=== PATIENT | female | born 1940 | race African-American/Black ===

== ENCOUNTER 2024-09-15 16:37 | Inpatient (IN) | payer BC, MEDICAID, MEDICARE ==
[2024-09-15] VITALS (7 sets, daily range): BP systolic 98–129; BP diastolic 46–53; PULSE 47–59; RESP 11–21; TEMP 36.3; O2SAT 98–100
[~2024-09-15] VITALS: Ht 167.6 cm; Wt 78.6 kg
[~2024-09-15 16:37] MED LIST: ASPI-1497 PO; BENA-8 PO; CIPR-263 PO; GLIM4TAB36 PO; METF-416 PO; SIMV-43 PO
[2024-09-15 17:45] LABS: BASOPHILS % 0.1 % (0.0-2.0); DIFFERENTIAL COMMENT 0; HEMATOCRIT. 35.9 % (36.0-48.0); HEMOGLOBIN. 10.9 g/dL (12.0-16.0); MEAN CORPUSCULAR HGB CONC 30.4 g/dL (31.0-37.0); MEAN CORPUSCULAR VOLUME 91.9 fL (81.0-99.0); MEAN PLATELET VOLUME 9.5 fl (7.4-10.4); MONOCYTES % 5.5 % (2.0-8.0); NEUTROPHILS % 84.4 % (40.0-76.0); PLATELET 231 x1000/uL (130-400); RED CELL DISTRIBUTION WIDTH 15.6 % (11.6-14.6); WHITE BLOOD COUNT 16.8 x1000/uL (4.5-11.0)
[2024-09-15 17:56] LABS: CHLORIDE 103 mEq/L (98-107); POTASSIUM 5.3 mEq/L (3.5-5.1); SODIUM 142 mEq/L (136-145)
[2024-09-15 17:57] LABS: CALCIUM 9.4 mg/dL (8.7-10.4); CARBON DIOXIDE 21 mEq/L (21-32)
[2024-09-15 18:02] LABS: CREATININE 1.8 mg/dL (0.6-1.0); GLUCOSE 250 mg/dL (70-105); UREA NITROGEN BLOOD 70 mg/dL (9-23)
[2024-09-15 18:30] LABS: TROPONIN I HIGH SENSITIVITY 11095 ng/L (3.0-34)
[2024-09-15] MEDS ORDERED: MIDAZOLAM HCL 2 MG/2 ML VIAL ONE (19:12)
[2024-09-15] MEDS ORDERED: EPINEPHRINE 0.1MG/ML (1:10,000) 10ML SYR ONE (19:12)
[2024-09-15] MEDS ORDERED: LIDOCAINE HCL 1% 20ML VIAL ONE (19:12)
[2024-09-15] MEDS ORDERED: IODIXANOL 320 MG/ML 150ML BOTTLE IV ONE (19:12)
[2024-09-15] MEDS ORDERED: ATROPINE SULFATE 1MG/10ML SYR ONE ×2 (19:13→19:58)
[2024-09-15] MEDS ORDERED: HEPARIN 1000 UNITS/ML 10ML ONE (19:13)
[2024-09-15] MEDS ORDERED: FENTANYL CITRATE/PF 50MCG/ML 2ML VIAL ONE (19:13)
[2024-09-15] MEDS ORDERED: DIPHENHYDRAMINE 50MG/ML VIAL ONE (19:15)
[2024-09-15] MEDS: HEPARIN 5000 UNITS/ML VIAL IV ONE (19:22)
[2024-09-15 19:39] LABS: THYROID STIMULATING HORMONE 1.91 uIU/mL (0.55-4.78)
[2024-09-15] MEDS ORDERED: VERAPAMIL HCL 2.5 MG/1 ML 2ML VIAL IV ONE (19:43)
[2024-09-15] MEDS ORDERED: DOPAMINE 400MG/250ML PREMIX 250 ML IV ONE (19:54)
[2024-09-15] MEDS ORDERED: HYDRALAZINE 20MG/ML VIAL ONE (20:31)
[2024-09-15] MEDS ORDERED: ACETAMINOPHEN 325MG TABLET PO PRN ×3 (21:00→22:45)
[2024-09-15] MEDS: ATROPINE SULFATE 1MG/10ML SYR IV PRN (22:31)
[2024-09-15] MEDS: SODIUM CHLORIDE 0.45% 500 ML IV SCH (22:31)
[2024-09-15] MEDS ORDERED: GUAIFENESIN 200MG/10ML SUGAR FREE UDC PO PRN (22:45)
[2024-09-15] MEDS ORDERED: IPRATROPIUM/ALBUTEROL 0.5-3(2.5)MG/3ML NEB HHN PRN (22:45)
[2024-09-15] MEDS ORDERED: CLONIDINE 0.1MG TABLET PO PRN (22:45)
[2024-09-15] MEDS ORDERED: MAGNESIUM/ALUMINUM HYDROXIDE/SIMETHICONE 30ML UDC PO PRN (22:45)
[2024-09-15] MEDS ORDERED: DEXTROSE 50% WATER 50ML SYRINGE IV PRN (23:00)
[2024-09-15] MEDS: SODIUM CHLORIDE 0.9% 1,000 ML IV SCH (23:22)
[2024-09-15] MEDS: SODIUM ZIRCONIUM CYCLOSILICATE 10GM/PACKET PO NR (23:23)
[2024-09-16] VITALS (76 sets, daily range): BP systolic 83–168; BP diastolic 45–111; PULSE 41–94; RESP 9–26; TEMP 36.2–37.2; O2SAT 92–100
[2024-09-16 00:59] LABS: PHOSPHORUS 4.6 mg/dL (2.5-4.9)
[2024-09-16] MEDS: DOPAMINE 800MG PREMIX (DOUBLE) 250 ML IV PRN (01:01)
[2024-09-16 06:27] LABS: PROTHROMBIN TIME 10.9 sec (9.6-11.0)
[2024-09-16 06:36] LABS: CALCIUM 8.9 mg/dL (8.7-10.4); CARBON DIOXIDE 26 mEq/L (21-32); CHLORIDE 107 mEq/L (98-107); POTASSIUM 4.4 mEq/L (3.5-5.1); SODIUM 146 mEq/L (136-145)
[2024-09-16 06:41] LABS: CREATININE 1.4 mg/dL (0.6-1.0)
[2024-09-16 06:42] LABS: GLUCOSE 180 mg/dL (70-105); TRIGLYCERIDE 150 mg/dL (0-150); UREA NITROGEN BLOOD 67 mg/dL (9-23)
[2024-09-16 06:43] LABS: LDL CHOLESTEROL 55 mg/dL (5-100)
[2024-09-16 06:44] LABS: CHOLESTEROL 122 mg/dL (<200); HDL CHOLESTEROL 32 mg/dL (>65)
[2024-09-16 06:51] LABS: BASOPHILS % 0.1 % (0.0-2.0); HEMOGLOBIN. 9.9 g/dL (12.0-16.0); LYMPHOCYTES % 13.8 % (20.0-50.0); MEAN CORPUSCULAR HEMOGLOBIN 28.2 pg (28.0-32.0); MEAN CORPUSCULAR VOLUME 91.2 fL (81.0-99.0); MEAN PLATELET VOLUME 9.5 fl (7.4-10.4); MONOCYTES % 6.7 % (2.0-8.0); NEUTROPHILS % 79.4 % (40.0-76.0); PLATELET 225 x1000/uL (130-400); RED BLOOD CELL COUNT 3.51 mill/uL (4.2-5.4); RED CELL DISTRIBUTION WIDTH 14.6 % (11.6-14.6); WHITE BLOOD COUNT 13.5 x1000/uL (4.5-11.0)
[2024-09-16 06:54] LABS: CREATINE KINASE 2515 IU/L (34-145)
[2024-09-16] MEDS: BLOOD SUGAR DIAGNOSTIC STRIP TEST SCH (07:51)
[2024-09-16 08:11] LABS: TROPONIN I HIGH SENSITIVITY 13992 ng/L (3.0-34)
[2024-09-16] MEDS ORDERED: INSULIN LISPRO 100 UNITS/ML SUBCUT SCH (08:20)
[2024-09-16] MEDS ORDERED: HEPARIN 25,000 UNITS PREMIX 250 ML IV SCH (08:45)
[2024-09-16] MEDS: ASPIRIN 81MG TABLET PO SCH (09:07)
[2024-09-16] MEDS: INSULIN LISPRO 100 UNITS/ML SUBCUT SCH (09:08)
[2024-09-16] MEDS: SODIUM CHLORIDE 0.45% 250 ML IV ONE (09:09)
[2024-09-16] MEDS ORDERED: HEPARIN BOLUS PRN aPTT <30 IV (09:15)
[2024-09-16] MEDS: HEPARIN 60 UNITS/KG BOLUS IV SCH ×2 (10:00→10:58)
[2024-09-16] MEDS: HEPARIN 25,000 UNITS PREMIX 250 ML IV SCH (11:01)
[2024-09-16 15:00] LABS: TROPONIN I HIGH SENSITIVITY 11707 ng/L (3.0-34)
[2024-09-16 17:49] LABS: TROPONIN I HIGH SENSITIVITY 11407 ng/L (3.0-34)
[2024-09-16 17:58] LABS: CREATINE KINASE 1667 IU/L (34-145)
[2024-09-16] MEDS: HEPARIN BOLUS PRN aPTT 30-44 IV (19:41)
[2024-09-16] MEDS: FAMOTIDINE 20MG TABLET PO SCH (21:56)
[2024-09-16] MEDS: ATORVASTATIN CALCIUM 40MG TABLET PO SCH (21:56)
[2024-09-17] VITALS (96 sets, daily range): BP systolic 86–164; BP diastolic 40–98; PULSE 49–90; RESP 9–31; TEMP 36.7–36.9; O2SAT 63–100
[2024-09-17 06:22] LABS: BASOPHILS % 0.3 % (0.0-2.0); EOSINOPHILS % 1.1 % (0.0-5.0); HEMATOCRIT. 27.6 % (36.0-48.0); HEMOGLOBIN. 8.8 g/dL (12.0-16.0); LYMPHOCYTES % 16.1 % (20.0-50.0); MEAN CORPUSCULAR HEMOGLOBIN 28.9 pg (28.0-32.0); MEAN CORPUSCULAR HGB CONC 31.9 g/dL (31.0-37.0); MEAN CORPUSCULAR VOLUME 90.7 fL (81.0-99.0); MONOCYTES % 7.9 % (2.0-8.0); NEUTROPHILS % 74.6 % (40.0-76.0); PLATELET 190 x1000/uL (130-400); RED BLOOD CELL COUNT 3.04 mill/uL (4.2-5.4); RED CELL DISTRIBUTION WIDTH 14.6 % (11.6-14.6); WHITE BLOOD COUNT 12.3 x1000/uL (4.5-11.0)
[2024-09-17 06:44] LABS: CHLORIDE 110 mEq/L (98-107); POTASSIUM 3.7 mEq/L (3.5-5.1); SODIUM 145 mEq/L (136-145)
[2024-09-17 06:46] LABS: CARBON DIOXIDE 25 mEq/L (21-32)
[2024-09-17 06:47] LABS: CALCIUM 8.7 mg/dL (8.7-10.4)
[2024-09-17 06:51] LABS: CREATININE 0.9 mg/dL (0.6-1.0)
[2024-09-17 06:52] LABS: GLUCOSE 160 mg/dL (70-105); UREA NITROGEN BLOOD 44 mg/dL (9-23)
[2024-09-17 06:53] LABS: ALANINE AMINOTRANSFERASE 504 IU/L (10-49); ALBUMIN 3.2 g/dL (3.2-4.8); ASPARTATE AMINOTRANSFERASE 155 IU/L (<34)
[2024-09-17 06:54] LABS: BILIRUBIN DIRECT 0.2 mg/dL (<=3.0); BILIRUBIN TOTAL 0.5 mg/dL (0.1-1.0); PROTEIN TOTAL 5.6 g/dL (6.0-8.3)
[2024-09-17 07:02] LABS: TROPONIN I HIGH SENSITIVITY 10410 ng/L (3.0-34)
[2024-09-17 15:13] LABS: BASOPHILS % 0.5 % (0.0-2.0); EOSINOPHILS % 0.6 % (0.0-5.0); HEMATOCRIT. 28.9 % (36.0-48.0); LYMPHOCYTES % 14.3 % (20.0-50.0); MEAN CORPUSCULAR HEMOGLOBIN 28.7 pg (28.0-32.0); MEAN CORPUSCULAR HGB CONC 31.3 g/dL (31.0-37.0); MEAN CORPUSCULAR VOLUME 91.8 fL (81.0-99.0); MEAN PLATELET VOLUME 10.1 fl (7.4-10.4); MONOCYTES % 6.5 % (2.0-8.0); NEUTROPHILS % 78.1 % (40.0-76.0); PLATELET 199 x1000/uL (130-400); RED BLOOD CELL COUNT 3.15 mill/uL (4.2-5.4); RED CELL DISTRIBUTION WIDTH 14.9 % (11.6-14.6)
[2024-09-17 16:40] LABS: CLARITY URINE CLEAR (CLEAR); COLOR URINE RED (YELLOW); GLUCOSE URINE 2+ (NEGATIVE); KETONES URINE NEGATIVE (NEGATIVE); LEUKOCYTE ESTERASE URINE 3+ (NEGATIVE); NITRITE URINE NEGATIVE (NEGATIVE); OCCULT BLOOD URINE 3+ (NEGATIVE); PH URINE 6.5 (4.5-8.0); PROTEIN URINE 3+ (NEGATIVE); SPECIFIC GRAVITY URINE 1.015 (1.005-1.030); UROBILINOGEN URINE 0.2 E.U./dL (0.2-1.0)
[2024-09-17 16:55] LABS: BACTERIA URINE 4+; RBC URINE TNTC /hpf (0-2); SQUAMOUS EPITHELIAL CELL URINE 1+ /lpf (RARE/1+)
[2024-09-17 16:57] LABS: WBC URINE 15-25 /hpf (0-2)
[2024-09-18] VITALS (88 sets, daily range): BP systolic 78–208; BP diastolic 38–118; PULSE 53–92; RESP 12–27; TEMP 35.7–37.6; O2SAT 100
[2024-09-18 10:20] LABS: HEMATOCRIT 25.9 % (36.0-48.0); HEMOGLOBIN 8.1 g/dL (12.0-16.0); MEAN CORPUSCULAR HEMOGLOBIN 28.4 pg (28.0-32.0); MEAN CORPUSCULAR HGB CONC 31.1 g/dL (31.0-37.0); MEAN CORPUSCULAR VOLUME 91.3 fL (81.0-99.0); PLATELET 162 x1000/uL (130-400); RED BLOOD CELL COUNT 2.84 mill/uL (4.2-5.4); RED CELL DISTRIBUTION WIDTH 15.3 % (11.6-14.6); WHITE BLOOD COUNT 12.3 x1000/uL (4.5-11.0)
[2024-09-18 10:46] LABS: CHLORIDE 114 mEq/L (98-107); POTASSIUM 3.9 mEq/L (3.5-5.1); SODIUM 145 mEq/L (136-145)
[2024-09-18 10:47] LABS: CARBON DIOXIDE 23 mEq/L (21-32)
[2024-09-18 10:48] LABS: CALCIUM 8.4 mg/dL (8.7-10.4)
[2024-09-18 10:52] LABS: CREATININE 0.9 mg/dL (0.6-1.0)
[2024-09-18 10:53] LABS: GLUCOSE 229 mg/dL (70-105); UREA NITROGEN BLOOD 28 mg/dL (9-23)
[2024-09-18] MEDS: CEFTRIAXONE 1GM/50ML 50 ML IV SCH (23:00)
[2024-09-19] VITALS (95 sets, daily range): BP systolic 67–210; BP diastolic 40–138; PULSE 43–74; RESP 6–23; TEMP 36.6–36.8; O2SAT 92–100
[2024-09-19 12:59] LABS: BASOPHILS % 0.2 % (0.0-2.0); EOSINOPHILS % 0.6 % (0.0-5.0); HEMATOCRIT. 26.5 % (36.0-48.0); HEMOGLOBIN. 8.2 g/dL (12.0-16.0); LYMPHOCYTES % 16.8 % (20.0-50.0); MEAN CORPUSCULAR HEMOGLOBIN 28.5 pg (28.0-32.0); MEAN CORPUSCULAR HGB CONC 30.9 g/dL (31.0-37.0); MEAN CORPUSCULAR VOLUME 92.2 fL (81.0-99.0); MEAN PLATELET VOLUME 9.1 fl (7.4-10.4); NEUTROPHILS % 74.4 % (40.0-76.0); PLATELET 195 x1000/uL (130-400); RED BLOOD CELL COUNT 2.87 mill/uL (4.2-5.4); RED CELL DISTRIBUTION WIDTH 15.2 % (11.6-14.6); WHITE BLOOD COUNT 15.1 x1000/uL (4.5-11.0)
[2024-09-19 13:05] LABS: CHLORIDE 111 mEq/L (98-107); POTASSIUM 4.6 mEq/L (3.5-5.1); SODIUM 143 mEq/L (136-145)
[2024-09-19 13:06] LABS: CALCIUM 8.7 mg/dL (8.7-10.4); CARBON DIOXIDE 23 mEq/L (21-32)
[2024-09-19 13:11] LABS: GLUCOSE 266 mg/dL (70-105); UREA NITROGEN BLOOD 28 mg/dL (9-23)
[2024-09-19 13:13] LABS: ALANINE AMINOTRANSFERASE 253 IU/L (10-49); ALBUMIN 3.3 g/dL (3.2-4.8); ASPARTATE AMINOTRANSFERASE 49 IU/L (<34); BILIRUBIN DIRECT 0.1 mg/dL (<=3.0); BILIRUBIN TOTAL 0.3 mg/dL (0.1-1.0); PHOSPHORUS 2.5 mg/dL (2.5-4.9); PROTEIN TOTAL 5.8 g/dL (6.0-8.3)
[2024-09-20] VITALS (95 sets, daily range): BP systolic 102–188; BP diastolic 47–85; PULSE 41–66; RESP 2–24; TEMP 36.2–36.8; O2SAT 90–100
[2024-09-20 06:35] LABS: POTASSIUM 4.6 mEq/L (3.5-5.1)
[2024-09-20 06:36] LABS: CALCIUM 9.1 mg/dL (8.7-10.4)
[2024-09-20 06:39] LABS: BASOPHILS % 0.4 % (0.0-2.0); EOSINOPHILS % 1.5 % (0.0-5.0); HEMATOCRIT. 28.4 % (36.0-48.0); HEMOGLOBIN. 8.9 g/dL (12.0-16.0); LYMPHOCYTES % 18.7 % (20.0-50.0); MEAN CORPUSCULAR HEMOGLOBIN 28.8 pg (28.0-32.0); MEAN CORPUSCULAR HGB CONC 31.2 g/dL (31.0-37.0); MEAN CORPUSCULAR VOLUME 92.4 fL (81.0-99.0); MEAN PLATELET VOLUME 10.4 fl (7.4-10.4); NEUTROPHILS % 71.4 % (40.0-76.0); PLATELET 199 x1000/uL (130-400); RED BLOOD CELL COUNT 3.08 mill/uL (4.2-5.4); RED CELL DISTRIBUTION WIDTH 15.1 % (11.6-14.6); WHITE BLOOD COUNT 16.5 x1000/uL (4.5-11.0)
[2024-09-20 06:41] LABS: CREATININE 1.1 mg/dL (0.6-1.0)
[2024-09-20] MEDS: DOCUSATE SODIUM 100MG CAPSULE PO PRN (08:56)
[2024-09-20] MEDS: AMLODIPINE 2.5MG TABLET PO NR (13:44)
[2024-09-20] MEDS: ISOSORBIDE MONONITRATE 30MG TABLET SR 24HR PO SCH (13:44)
[2024-09-21] VITALS (101 sets, daily range): BP systolic 77–182; BP diastolic 39–160; PULSE 42–82; RESP 8–27; TEMP 36.1–36.8; O2SAT 93–100
[2024-09-21] MEDS ORDERED: LIDOCAINE HCL 1% 10 MG/ML 10ML VIAL ONE (09:33)
[2024-09-21 19:41] LABS: CHLORIDE 114 mEq/L (98-107); POTASSIUM 4.6 mEq/L (3.5-5.1); SODIUM 143 mEq/L (136-145)
[2024-09-21 19:42] LABS: BASOPHILS % 0.4 % (0.0-2.0); CARBON DIOXIDE 21 mEq/L (21-32); EOSINOPHILS % 1.3 % (0.0-5.0); HEMATOCRIT. 28.3 % (36.0-48.0); HEMOGLOBIN. 8.5 g/dL (12.0-16.0); LYMPHOCYTES % 13.8 % (20.0-50.0); MEAN CORPUSCULAR HEMOGLOBIN 28.5 pg (28.0-32.0); MEAN CORPUSCULAR HGB CONC 30.1 g/dL (31.0-37.0); MEAN CORPUSCULAR VOLUME 94.6 fL (81.0-99.0); MEAN PLATELET VOLUME 9.6 fl (7.4-10.4); MONOCYTES % 6.8 % (2.0-8.0); NEUTROPHILS % 77.7 % (40.0-76.0); PLATELET 200 x1000/uL (130-400); RED BLOOD CELL COUNT 2.99 mill/uL (4.2-5.4); RED CELL DISTRIBUTION WIDTH 16.2 % (11.6-14.6); WHITE BLOOD COUNT 15.1 x1000/uL (4.5-11.0)
[2024-09-21 19:43] LABS: CALCIUM 8.6 mg/dL (8.7-10.4)
[2024-09-21 19:47] LABS: CREATININE 0.8 mg/dL (0.6-1.0); GLUCOSE 212 mg/dL (70-105); UREA NITROGEN BLOOD 21 mg/dL (9-23)
[2024-09-22] VITALS (96 sets, daily range): BP systolic 100–172; BP diastolic 44–103; PULSE 41–60; RESP 12–27; TEMP 36.3–36.9; O2SAT 84–100
[2024-09-22 07:08] LABS: CARBON DIOXIDE 21 mEq/L (21-32); CHLORIDE 114 mEq/L (98-107); POTASSIUM 4.6 mEq/L (3.5-5.1); SODIUM 144 mEq/L (136-145)
[2024-09-22 07:10] LABS: CALCIUM 8.8 mg/dL (8.7-10.4)
[2024-09-22 07:14] LABS: CREATININE 0.7 mg/dL (0.6-1.0); GLUCOSE 179 mg/dL (70-105)
[2024-09-22 07:15] LABS: HEMATOCRIT 26.7 % (36.0-48.0); HEMOGLOBIN 8.3 g/dL (12.0-16.0); MEAN CORPUSCULAR HEMOGLOBIN 28.9 pg (28.0-32.0); MEAN CORPUSCULAR HGB CONC 31.2 g/dL (31.0-37.0); MEAN CORPUSCULAR VOLUME 92.5 fL (81.0-99.0); PLATELET 214 x1000/uL (130-400); RED BLOOD CELL COUNT 2.89 mill/uL (4.2-5.4); RED CELL DISTRIBUTION WIDTH 15.2 % (11.6-14.6); UREA NITROGEN BLOOD 20 mg/dL (9-23); WHITE BLOOD COUNT 15.4 x1000/uL (4.5-11.0)
[2024-09-23] VITALS (88 sets, daily range): BP systolic 105–171; BP diastolic 47–135; PULSE 46–66; RESP 7–26; TEMP 36.3–36.7; O2SAT 90–100
[2024-09-23] MEDS: SULFAMETHOXAZOLE/TRIMETHOPRIM 800/160MG TABLET PO SCH (11:55)
[2024-09-24] VITALS (74 sets, daily range): BP systolic 98–192; BP diastolic 47–130; PULSE 51–85; RESP 6–33; TEMP 36.1–36.7; O2SAT 79–100
[2024-09-24] MEDS ORDERED: CEFAZOLIN SODIUM 1000MG/VIAL ONE (11:24)
[2024-09-24] MEDS ORDERED: GENTAMICIN SULF 40MG/ML 2ML VIAL ONE (11:24)
[2024-09-24] MEDS ORDERED: STERILE WATER FOR INJECTION 10ML VIAL ONE (11:24)
[2024-09-24] MEDS ORDERED: GENTAMICIN 80MG in SODIUM CHLORIDE IRRIG SOLN 500ML IR NR (12:00)
[2024-09-24] MEDS ORDERED: FENTANYL CITRATE/PF 50MCG/ML 2ML VIAL ONE (12:43)
[2024-09-24] MEDS ORDERED: IODIXANOL 320MG/ML 100 ML BOTTLE IV ONE (12:44)
[2024-09-24] MEDS ORDERED: MIDAZOLAM HCL 2 MG/2 ML VIAL ONE (12:44)
[2024-09-24] MEDS ORDERED: DIPHENHYDRAMINE 50MG/ML VIAL ONE (13:06)
[2024-09-25] VITALS (46 sets, daily range): BP systolic 133–166; BP diastolic 53–126; PULSE 78–96; RESP 13–30; TEMP 36.6–37.2; O2SAT 86–99
[2024-09-25 05:53] LABS: BASOPHILS % 0.3 % (0.0-2.0); EOSINOPHILS % 0.5 % (0.0-5.0); HEMOGLOBIN. 8.4 g/dL (12.0-16.0); LYMPHOCYTES % 9.8 % (20.0-50.0); MEAN CORPUSCULAR HEMOGLOBIN 29.1 pg (28.0-32.0); MEAN CORPUSCULAR HGB CONC 32.3 g/dL (31.0-37.0); MEAN PLATELET VOLUME 8.8 fl (7.4-10.4); MONOCYTES % 5.8 % (2.0-8.0); NEUTROPHILS % 83.6 % (40.0-76.0); PLATELET 235 x1000/uL (130-400); RED BLOOD CELL COUNT 2.89 mill/uL (4.2-5.4); RED CELL DISTRIBUTION WIDTH 15.4 % (11.6-14.6); WHITE BLOOD COUNT 14.9 x1000/uL (4.5-11.0)
[2024-09-25 06:00] LABS: INR 1.1; PARTIAL THROMBOPLASTIN TIME 26.8 sec (23.4-31.0); PROTHROMBIN TIME 12.1 sec (9.6-11.0)
[2024-09-25 06:21] LABS: CALCIUM 8.7 mg/dL (8.7-10.4); CHLORIDE 113 mEq/L (98-107); POTASSIUM 3.8 mEq/L (3.5-5.1); SODIUM 147 mEq/L (136-145)
[2024-09-25 06:22] LABS: CARBON DIOXIDE 22 mEq/L (21-32)
[2024-09-25 06:27] LABS: CREATININE 0.8 mg/dL (0.6-1.0); GLUCOSE 111 mg/dL (70-105); UREA NITROGEN BLOOD 8 mg/dL (9-23)
[2024-09-26] VITALS (18 sets, daily range): BP systolic 120–162; BP diastolic 49–119; PULSE 88–101; RESP 0–22; TEMP 36.4–36.6; O2SAT 96–100
[2024-09-27] VITALS: BP 146/59; PULSE 93; RESP 18; TEMP 36.4; O2SAT 97
[2024-09-27 04:00] VITALS: BP 157/78; PULSE 98; RESP 19; TEMP 36.4; O2SAT 97
[2024-09-27 08:00] VITALS: BP 169/77; PULSE 96; RESP 18; TEMP 36.7; O2SAT 100
[2024-09-27 12:00] VITALS: BP 161/71; PULSE 98; RESP 18; TEMP 36.6; O2SAT 99
[2024-09-27] MEDS ORDERED: ASPI-1497 PO (14:03)
[2024-09-27] MEDS ORDERED: LIP40 PO (14:03)
[2024-09-27] MEDS ORDERED: ISOS30TA91 PO (14:03)
[2024-09-27] MEDS ORDERED: CLOP-31 PO (14:07)
[2024-09-27] MEDS: CLOPIDOGREL 75MG TABLET PO SCH (14:52)
[2024-09-27 16:00] VITALS: BP 146/56; PULSE 96; RESP 18; TEMP 36.6; O2SAT 98
[2024-09-27 18:02] VITALS: BP 146/56; PULSE 96; TEMP 97.9; O2SAT 98
== END 2024-09-27 19:34 | disposition home health service (06) | DRG 242 ==
LOC: ER 16:37 → EDBEDREQSVC 19:25 → EDBEDREQ 19:25 → CVICU 21:17 → 8WST 09-26 12:23
PROVIDERS: ADMIT Internal Medicine; ATTEND Internal Medicine
PROC: 02703ZZ Dilation of Coronary Artery, One Artery, Percutaneous Approach (ICD-10-PCS; principal; 2024-09-15)
PROC: 4A023N7 Measurement of Cardiac Sampling and Pressure, Left Heart, Percutaneous Approach (ICD-10-PCS; 2024-09-15)
PROC: B211YZZ Fluoroscopy of Multiple Coronary Arteries using Other Contrast (ICD-10-PCS; 2024-09-15)
PROC: B41FYZZ Fluoroscopy of Right Lower Extremity Arteries using Other Contrast (ICD-10-PCS; 2024-09-15)
PROC: B41CYZZ Fluoroscopy of Pelvic Arteries using Other Contrast (ICD-10-PCS; 2024-09-15)
PROC: B213YZZ Fluoroscopy of Multiple Coronary Artery Bypass Grafts using Other Contrast (ICD-10-PCS; 2024-09-15)
PROC: B218YZZ Fluoroscopy of Left Internal Mammary Bypass Graft using Other Contrast (ICD-10-PCS; 2024-09-15)
PROC: 02HV33Z Insertion of Infusion Device into Superior Vena Cava, Percutaneous Approach (ICD-10-PCS; 2024-09-21)
PROC: B548ZZA Ultrasonography of Superior Vena Cava, Guidance (ICD-10-PCS; 2024-09-21)
PROC: 0JH606Z Insertion of Pacemaker, Dual Chamber into Chest Subcutaneous Tissue and Fascia, Open Approach (ICD-10-PCS; 2024-09-24)
PROC: 02H63JZ Insertion of Pacemaker Lead into Right Atrium, Percutaneous Approach (ICD-10-PCS; 2024-09-24)
PROC: 02HK3JZ Insertion of Pacemaker Lead into Right Ventricle, Percutaneous Approach (ICD-10-PCS; 2024-09-24)
DX: I21.4 Non-ST elevation (NSTEMI) myocardial infarction (principal); I50.21 Acute systolic (congestive) heart failure; I44.2 Atrioventricular block, complete; M62.82 Rhabdomyolysis; N17.9 Acute kidney failure, unspecified; N39.0 Urinary tract infection, site not specified; E87.5 Hyperkalemia; I25.10 Atherosclerotic heart disease of native coronary artery without angina pectoris; I11.0 Hypertensive heart disease with heart failure; D72.829 Elevated white blood cell count, unspecified; E11.9 Type 2 diabetes mellitus without complications; E78.5 Hyperlipidemia, unspecified; D64.9 Anemia, unspecified; Z79.84 Long term (current) use of oral hypoglycemic drugs; Z80.9 Family history of malignant neoplasm, unspecified; Z87.891 Personal history of nicotine dependence; Z79.82 Long term (current) use of aspirin
CPT/HCPCS: 33208; 36415; 36573; 71045; 75820; 80048; 80051; 80061; 80076; 81003; 82550; 82962; 83036; 83735; 84100; 84145; 84443; 84484; 85025; 85027; 85347; 85379; 87077; 87186; 92920; 93005; 93306; 93458; 97162; 97164; 97166; 97530; 97535; 99291; A4216; A4606; C1725; C1769; C1785; C1887; C1893; C1898; J0360; J0461; J0690; J0696; J1200; J1265; J1580; J1644; J1815; J2003; J2250; J3010; J3490; J7030; L1830; Q9967